=== PATIENT | female | born 1990 | race Two or more races ===

== ENCOUNTER 2024-10-03 12:25 | Emergency (ER) | payer SELFPAY ==
[2024-10-03 12:37] VITALS: BP 179/129; PULSE 121; RESP 19; TEMP 36.7; O2SAT 96; BMI 37.0
--- NOTE | 2024-10-03 13:08 | EKG_ITS ---
[facility] Test Date: 2024-10-03 Pat Name: VALENTINA REYNOLDS Department: Room: - Gender: Female Touch Up Worker: : 1990 Requested By: David Sage (YEFRI) Order Number: [id number] Reading MD: David Sage (HEALTH OCCUPATIONS INSTRUCTOR) Measurements Intervals [place] Rate: 109 P: 28 MN: 152 QRS: -14 QRSD: 89 T: 29 QT: 319 QTc: 430 Interpretive Statements SINUS TACHYCARDIA POSSIBLE LEFT ATRIAL ENLARGEMENT [-0.1mV P WAVE IN V1/V2] POSSIBLE LEFT VENTRICULAR HYPERTROPHY [VOLTAGE CRITERIA PLUS LAE OR QRS WIDENING] POSSIBLE ANTERIOR MYOCARDIAL INFARCTION , OF INDETERMINATE AGE [30 ms Q WAVE IN V3/V4, OR R < 0.2 mV IN V4] No previous ECG available for comparison /store/[email or web address]/[id number]/[id number]
--- NOTE | 2024-10-03 13:08 | XR_ITS ---
Examination: PA lateral chest 2 views Technique: Upright PA lateral chest 2 views Exam date and time: October 03, 2024 1327 hrs. Indications: Chest pain today. Findings: Normal heart size Lungs are clear. The osseous structures are intact Impression: No active disease
[2024-10-03 13:39] LABS: B-Type Natriuretic Peptide < 20 pg/mL (0-100)
[2024-10-03 13:41] LABS: Alanine Aminotransferase 97 U/L (10-49); Albumin, Serum 4.7 gm/dL (3.5-5.0); Albumin/Globulin Ratio 1.3 (1.2-2.2); Alkaline Phosphatase 169 U/L (46-116); Anion Gap 10 (7-16); Aspartate Amino Transferase 42 U/L (0-34); BUN/Creatinine Ratio 11 Ratio (12-20); Bilirubin,Total 0.7 mg/dL (0.3-1.2); Blood Urea Nitrogen 10 mg/dL (9-23); Calcium 9.7 mg/dL (8.3-10.6); Calcium (Corrected) 9.7 mg/dL (8.5-10.1); Carbon Dioxide 24.9 mMol/L (20.0-31.0); Chloride 98 mMol/L (98-107); Creatinine (Component) 0.9 mg/dL (0.6-1.3); Estimated Creatinine Clearance 100.1 mL/min (>60); Globulin 3.5 gm/dL (2.3-3.5); Osmolality,Calculated 283 (275-295); Potassium 3.6 mMol/L (3.4-5.1); Sodium 133 mMol/L (136-145); Total Protein 8.2 gm/dL (5.7-8.2); Troponin I < 0.020 ng/mL (0.0-0.045); eGFR > 60 See Note
[2024-10-03 13:44] LABS: Glucose 416 mg/dL (74-106)
[2024-10-03 13:47] LABS: Basophils # (Auto) 0.1 Thou/mm3 (0.0-0.2); Basophils % (Auto) 1 % (0-2.5); Eosinophils # (Auto) 0.2 Thou/mm3 (0.0-0.5); Eosinophils % (Auto) 3 % (0-10); Hematocrit 38.4 % (36.0-46.0); Hemoglobin 13.9 g/dL (12.0-16.0); Immature Granulocytes % (Auto) 1 % (0-0); Immature Granulocytes Auto 0.04 Thou/mm3 (0.00-0.00); Lymphocytes # (Auto) 1.6 Thou/mm3 (1.0-4.8); Lymphocytes % (Auto) 19 % (10-50); Mean Corpuscular HGB Conc 36.2 g/dl (31.0-37.0); Mean Corpuscular Hemoglobin 30.3 pg (25.0-35.0); Mean Corpuscular Volume 84 fL (80-100); Monocytes # (Auto) 0.4 Thou/mm3 (0.0-0.8); Monocytes % (Auto) 5 % (0-12); Neutrophils # (Auto) 5.9 Thou/mm3 (1.8-7.7); Neutrophils % (Auto) 72 % (37-80); Nucleated Red Blood Cell % 0 /100 WBC (0); Platelet Count 331 Thou/mm3 (140-440); RDW Standard Deviation 38.6 fL (36.4-46.3); Red Blood Count 4.59 Miln/mm3 (4.00-5.20); White Blood Count 8.3 Thou/mm3 (3.6-11.0)
[2024-10-03 13:52] VITALS: BP 160/104; PULSE 93
[2024-10-03] MEDS: cloNIDine HCL 0.1 MG TABLET 0.2 MG PO (13:52)
[2024-10-03 13:59] LABS: HCG Qualitative,Urine Negative
[2024-10-03 14:13] LABS: Amphetamine/Methamp Scrn,U Negative (Negative); Barbiturate Screen,Urine Negative (Negative); Benzodiazepines Screen,Urine Negative (Negative); Benzoylecgonine Screen, Ur Negative (Negative); Fentanyl Screen,Urine Negative (Negative); Opiate Screen,Urine Negative (Negative); THC Screen,Urine Negative (Negative)
--- NOTE | 2024-10-03 14:15 | EDNOTE_ITS ---
ED General RME/HPI General Chief complaint: Medical Clearance Stated complaint: [facility] CHECK Time Seen by Provider: 10/03/24 14:14 Arrival date/time: 10/03/24 12:25 CC: Medical clearance HPI patient presents the ER via EMS PD in handcuffs, patient was triage, determined to be hypertensive, and a random Accu-Chek showed a blood sugar of greater than 400. Patient has no specific complaints including chest pain shortness of breath difficulty breathing no history of diabetes or hypertension. Related Data Previous Rx's ?Medication ?Instructions ?Recorded atorvastatin 20 mg tablet 20 mg PO QDAY #30 tabs 10/03/24 hydrochlorothiazide 12.5 mg tablet 12.5 mg PO QAM #30 tabs 10/03/24 lisinopril 20 mg tablet 20 mg PO QDAY #30 tabs 10/03/24 metformin 1,000 mg tablet 1,000 mg PO BID #30 tabs 10/03/24 Allergies Allergy/AdvReac Type Severity Reaction Status Date / Time No Known Allergies Allergy Verified 10/03/24 12:58 Review of Systems Review of Systems Narrative Review of Systems: GEN: No fever, no chills, no weight loss EYES: No discharge, no visual changes, no pain HEENT: No ear pain, no congestion, no sore throat PULM: No shortness of breath, no cough, no congestion CV: No chest pain, no dyspnea on exertion, no palpitations GI: No nausea, no vomiting, no diarrhea, no pain, no constipation : No frequency, no urgency, no dysuria MUSC/SKEL: No joint pain, no back pain SKIN: No rash PSYCH: No hallucinations, no depression HEME/LYMPH: No easy bleeding or bruising tendencies NEURO: No weakness, no headache ED Exam Narrative Physical exam: [General: Obese not in any acute distress Head normocephalic HEENT: Within acceptable limits Neck is supple nontender Chest equal chest rise nontender to palpation Respiratory: Clear to auscultation no wheezes crackles or rubs CV: Rate rhythm is regular no murmurs rubs or clicks Abdomen is distended secondary to body habitus soft nontender no masses positive bowel sounds all 4 quadrants Back: No CVA tenderness no spinous process tenderness from cervical spine thoracic and lumbar spine Skin: Intact no petechiae rash induration ulceration or crepitus Extremities: Moving all extremity against resistance cap refill less than 2 seconds neurosensory intact Neuro: Awake alert oriented x3 Glascow coma 15 no focal deficits] Course Course Course Narrative: Patient new diagnosis of hypertension and diabetes. Patient started on medications. Blood pressure at the time of discharge is 169/98. This is down from 210/110. At 1554, the patient's blood sugars decreased to 3 5:12 units of subcu insulin administered. Quality Measures none Orders Category Date Time Status Road Manager NOW Care 10/03/24 13:08 Completed EKG (ED ONLY) *Do not use* NOW Care 10/03/24 13:08 Completed Saline [Insert IV] NOW Care 10/03/24 14:14 Completed EKG (ED Only) Stat Exams 10/03/24 13:08 Draft XR chest 2V Stat Exams 10/03/24 13:08 Completed B-Type Natriuretic Peptide Stat Lab 10/03/24 13:17 Completed CBC Stat Lab 10/03/24 13:17 Completed Comprehensive Metabolic Panel Stat Lab 10/03/24 13:17 Completed Drug Screen,Urine Stat Lab 10/03/24 13:38 Completed HCG Qualitative,Urine Stat Lab 10/03/24 13:38 Completed Lipid Panel Stat Lab 10/03/24 13:17 Completed Troponin I Stat Lab 10/03/24 13:17 Completed Insulin Regular Med 10/03/24 14:14 Discontinued 5 unit SC X1 ONE cloNIDine HCL [Catapres] Med 10/03/24 13:08 Discontinued 0.2 mg PO X1 ONE hydrALAZINE INJ [Apresoline Inj] Med 10/03/24 14:14 Discontinued 20 mg IV X1 ONE Vital Signs Vital signs: Vital Signs Temperature 98.1 F 10/03/24 12:37 Pulse Rate 121 H 10/03/24 12:37 Respiratory Rate 19 10/03/24 12:37 Blood Pressure 179/129 H 10/03/24 12:37 Pulse Oximetry (%) 96 10/03/24 12:37 Oxygen Delivery Method Room Air 10/03/24 12:37 [facility] Patient data External records reviewed:: [facility] previous records Clinical information provided by:: patient and law enforcement Social determinants that could affect healthcare access:: none Patient has the following chronic illnesses:: None How is presenting disease/condition affected by chronic disease/condition?: u neffected by Evaluation data The following diagnostics were reviewed and interpreted by me:: lab results and radiology exam(s) Lab and/or radiology exams considered but not ordered:: CBC shows no acute leukocytosis anemia thrombocytopenia CMP shows a sodium 133 potassium 3.6 chloride of 98 CO2 of 24.9 BUN of 10 creatinine of 0.9 blood glucose of 416. Interpretation Summary: Diabetes Beatties and hypertension new diagnosis no prior history of Medications Medications considered but not ordered:: None Medication administrations:: Medication Administration History Discontinued Medications Clonidine (Clonidine Hcl 0.1 Mg Tablet) 0.2 mg PO X1 ONE Stop: 10/03/24 13:09 Last Admin: 10/03/24 13:52 Dose: 0.2 mg Documented By: DO Hydralazine HCl (Hydralazine Inj 20 Mg/Ml Vial) 20 mg IV X1 ONE Stop: 10/03/24 14:15 Last Admin: 10/03/24 14:45 Dose: 20 mg Documented By: DO Insulin Human Regular (Insulin Hum Regular 1 Unit/0.01 Ml (Per Unit)) 5 unit SC X1 ONE Stop: 10/03/24 14:15 Last Admin: 10/03/24 14:43 Dose: 5 unit Documented By: DO Co-signed By: EVANGELINA None Consultations Consultation(s) initiated? (list below): No Diagnosis Differential Diagnosis ED Complaint MDM: Diabetes hypertension hyperlipidemia Most likely diagnosis given after review of the tests above:: Diabetes new onset hypertension new onset medical clearance Admission Indicated Admission indicated?: not indicated Explain why admission is indicated or not indicated:: Stable for custodial Admission Request Was there a request for admission?: No Disposition Plan Disposition Plan: Discharge Discharge Attestation Discharge Attestation: The patient and all family members were given an opportunity to ask questions and understood the discharge instructions. Discharge instructions specifically effects, indications for sooner follow up or return to the emergency department, and the expected course of current diagnosis. Patient condition: Stable Medical Decision Making Differential Diagnosis Differential Diagnosis: Diabetes hypertension hyperlipidemia Lab Data 10/03/24 13:17 10/03/24 13:17 Labs: Lab Results 10/03/24 10/03/24 Range/Units 13:17 13:38 WBC 8.3 (3.6-11.0) Thou/mm3 RBC 4.59 (4.00-5.20) Miln/mm3 Hgb 13.9 (12.0-16.0) g/dL Hct 38.4 (36.0-46.0) % MCV 84 (80-100) fL MCH 30.3 (25.0-35.0) pg MCHC 36.2 (31.0-37.0) g/dl RDW Std Deviation 38.6 (36.4-46.3) fL Plt Count 331 (140-440) Thou/mm3 Neut % (Auto) 72 (37-80) % Lymph % (Auto) 19 (10-50) % Price % (Auto) 5 (0-12) % Eos % (Auto) 3 (0-10) % Baso % (Auto) 1 (0-2.5) % Neut # (Auto) 5.9 (1.8-7.7) Thou/mm3 Lymph # (Auto) 1.6 (1.0-4.8) Thou/mm3 Price # (Auto) 0.4 (0.0-0.8) Thou/mm3 Eos # (Auto) 0.2 (0.0-0.5) Thou/mm3 Baso # (Auto) 0.1 (0.0-0.2) Thou/mm3 Immature Gran # (Auto) 0.04 H (0.00-0.00) Thou/mm3 Absolute Nucleated RBC 0.00 (0.00-0.00) Thou/mm3 Immature Gran % 1 H (0-0) % Nucleated RBC % 0 (0) /100 WBC Sodium 133 L (136-145) mMol/L Potassium 3.6 (3.4-5.1) mMol/L Chloride 98 (98-107) mMol/L Carbon Dioxide 24.9 (20.0-31.0) mMol/L Anion Gap 10 (7-16) BUN 10 (9-23) mg/dL Creatinine 0.9 (0.6-1.3) mg/dL Estim Creat Clear Calc 100.1 (>60) mL/min eGFR > 60 (60 - ) See Note BUN/Creatinine Ratio 11 L (12-20) Ratio Glucose 416 H* (74-106) mg/dL Calculated Osmolality 283 (275-295) Calcium 9.7 (8.3-10.6) mg/dL Corrected Calcium 9.7 (8.5-10.1) mg/dL Total Bilirubin 0.7 (0.3-1.2) mg/dL AST 42 H (0-34) U/L ALT 97 H (10-49) U/L Alkaline Phosphatase 169 H (46-116) U/L Troponin I < 0.020 (0.0-0.045) ng/mL B-Natriuretic Peptide < 20 (0-100) pg/mL Total Protein 8.2 (5.7-8.2) gm/dL Albumin 4.7 (3.5-5.0) gm/dL Globulin 3.5 (2.3-3.5) gm/dL Albumin/Globulin Ratio 1.3 (1.2-2.2) Triglycerides 552 H (30-150) mg/dL Cholesterol 262 H (132-200) mg/dL LDL Cholesterol, Calc TNP HDL Cholesterol 46 (40-60) mg/dL Cholesterol/HDL Ratio 5.7 H (3.7-5.6) RATIO Urine HCG, Qual Negative Urine Opiates Screen Negative (Negative) Urine Fentanyl Screen Negative (Negative) Ur Barbiturates Screen Negative (Negative) U Amphetamin/Meth Scrn Negative (Negative) U Benzodiazepines Scrn Negative (Negative) U Cocaine Metab Screen Negative (Negative) U Marijuana (THC) Screen Negative (Negative) Discharge Plan Plan Patient Disposition: Correction/Court/Law Patient condition on transfer: Stable Prescriptions/Referrals Prescriptions/Med Rec: New metformin 1,000 mg tablet 1,000 mg PO BID Qty: 30 1RF lisinopril 20 mg tablet 20 mg PO QDAY Qty: 30 1RF hydrochlorothiazide 12.5 mg tablet 12.5 mg PO QAM Qty: 30 1RF atorvastatin 20 mg tablet 20 mg PO QDAY Qty: 30 1RF Referrals: Nolberto Nelson MD [Physician] - In 1 week No Primary/Family,Physician [Primary Care Provider] - In 1 week Problem List Clinical Impression: Diabetes mellitus, new onset, Hypertension, Medical clearance for incarceration, Hyperlipidemia Patient/Caregiver Discharge Instructions Education Materials: Controlling High Blood Pressure, Diabetes Tracking Your Fitness ..., Diabetes and High Blood Pressure Additional Instructions: Please start the following medications Metformin 500 mg 1 p.o. daily x 7 days and then 1 tablet twice daily x 10 days, if stay greater than 17 days advance to 1000 mg p.o. twice daily. Lisinopril 20 mg 1 p.o. daily Hydrochlorothiazide 12.5 mg 1 p.o. daily Atorvastatin 20 mg 1 p.o. daily Please have the patient check the blood glucose at least once a day. Print Language: [place] PA/SOFTWARE QUALITY ASSURANCE ENGINEER Supervising Physician PA/SOFTWARE QUALITY ASSURANCE ENGINEER Supervising Physician: Antoine Camarillo ENP
[2024-10-03 14:42] LABS: Cardiac Risk Estimate 5.7 RATIO (3.7-5.6); Cholesterol 262 mg/dL (132-200); HDL Cholesterol 46 mg/dL (40-60); Triglycerides 552 mg/dL (30-150)
[2024-10-03] MEDS: INSULIN HUM REGULAR 1 UNIT/0.01 ML (PER UNIT) 5 UNIT SC (14:43)
[2024-10-03 14:45] VITALS: BP 203/118; PULSE 109
[2024-10-03] MEDS: hydrALAZINE INJ 20 MG/ML VIAL IV (14:45)
[2024-10-03 15:15] VITALS: BP 169/98; PULSE 112; RESP 18; O2SAT 97
[2024-10-03 16:36] VITALS: BP 130/89; PULSE 109; RESP 18; O2SAT 97
== END 2024-10-03 16:36 ==
PROVIDERS: Nurse Practitioner Primary Care; Emergency Provider Emergency Medicine
DX: Z02.89 Encounter for other administrative examinations (principal); E11.9 Type 2 diabetes mellitus without complications; E78.5 Hyperlipidemia, unspecified; I10 Essential (primary) hypertension
CPT/HCPCS: 36415; 71046; 80053; 80061; 80307; 81025; 83880; 84484; 85025; 93005; 96372; 99284; J0360; J1815; A9270